=== PATIENT | female | born 1975 | race Caucasian/White ===

== ENCOUNTER 2019-07-29 11:14 | Emergency (ER) | payer OTHER ==
[~2019-07-29] VITALS: Ht 170.2 cm; Wt 72.6 kg
[2019-07-29] MEDS ORDERED: ATENOLOL 25 MG25 M1 PO (11:38)
[2019-07-29] MEDS ORDERED: ACTOS 30 MG TAB30 M1 PO (11:38)
[2019-07-29] MEDS ORDERED: LANTUS SUBQ (11:39)
[2019-07-29] MEDS ORDERED: GLYBURIDE 5 MG T5 M1 PO (11:39)
[2019-07-29] MEDS ORDERED: PLAQUENIL200 MG PO (11:39)
[2019-07-29] MEDS ORDERED: METFORMIN HCL500 M3 PO (11:39)
[2019-07-29] MEDS ORDERED: NIFEDIPINE10 MG PO (11:39)
[2019-07-29] MEDS ORDERED: TIZANIDINE HCL2 M1 PO (11:40)
[2019-07-29] MEDS ORDERED: TRAMADOL 50 MG50 MG (11:40)
[2019-07-29] MEDS ORDERED: OMEPRAZOLE40 MG PO (11:40)
[2019-07-29 12:48] LABS: ABSOLUTE BASOPHILS 0.1 thou/uL (0.0-0.2); ABSOLUTE EOSINOPHILS 0.1 thou/uL (0.0-0.7); ABSOLUTE LYMPHOCYTES 1.4 thou/uL (0.8-5.3); ABSOLUTE MONOCYTES 0.3 thou/uL (0.0-1.2); ABSOLUTE NEUTROPHILS 8.2 thou/uL (1.6-8.1); BASOPHILS 0.5 %; EOSINOPHILS 1.2 %; HEMATOCRIT 35.4 % (37.0-47.0); HEMOGLOBIN 11.9 gm/dL (12.0-15.0); LYMPHOCYTES 14.1 %; MCH 24.5 pg (26.0-34.0); MCHC 33.7 g/dL (28.0-37.0); MCV 72.8 fL (80.0-100.0); MONOCYTES 2.5 %; MPV 7.1 fl. (7.2-11.1); NUCLEATED RBCS 0 /100WBC; PLATELET COUNT* 332 thou/uL (150-400); POLYS 81.7 %; RBC 4.86 mil/uL (4.20-5.00); RDW-CV 15.9 % (10.5-14.5); WBC 10.1 thou/uL (4.0-11.0)
[2019-07-29 13:23] LABS: CALCIUM 9.2 mg/dL (8.5-10.1); CREATININE 0.8 mg/dL (0.6-1.3); POTASSIUM 3.2 mmol/L (3.5-5.1)
[2019-07-29 13:27] LABS: ALBUMIN 3.3 g/dL (3.4-5.0); MAGNESIUM 1.9 mg/dL (1.8-2.4); TOTAL BILIRUBIN 0.2 mg/dL (<0.1-1.0); TOTAL PROTEIN 7.8 g/dL (6.4-8.2)
[2019-07-29] MEDS ORDERED: NORCO 5-325 TA1 EAC1 PO ×3 (13:39→13:49)
[2019-07-29] MEDS ORDERED: NAPROSYN500 MG PO ×3 (13:39→13:49)
[2019-07-29 14:18] VITALS: BP 119/75
== END 2019-07-29 14:18 | disposition home or self-care (01) ==
LOC: M.ERS 11:14
PROVIDERS: Nurse Practitioner Family
DX: M79.662 Pain in left lower leg (principal); E87.6 Hypokalemia; M79.7 Fibromyalgia; M32.9 Systemic lupus erythematosus, unspecified; I10 Essential (primary) hypertension; G62.9 Polyneuropathy, unspecified; Z88.1 Allergy status to other antibiotic agents; Z88.5 Allergy status to narcotic agent; Z88.8 Allergy status to other drugs, medicaments and biological substances; Z91.013 Allergy to seafood